=== PATIENT | male | born 1935 | race Caucasian/White ===

== ENCOUNTER 2023-10-04 10:15 | Outpatient (CLI) | payer MEDICARE ==
[2023-10-01 11:52] LABS: ALANINE AMINOTRANSFERASE 24 U/L (12-78); ALBUMIN 3.9 G/DL (3.4-5.0); ALBUMIN/GLOBULIN RATIO 1.1 (1.1-1.5); ALKALINE PHOSPHATASE 88 IU/L (46-116); ANION GAP 9 (8-16); ASPARTATE AMINO TRANSFERASE 28 U/L (10-37); BILIRUBIN,TOTAL 0.8 MG/DL (0.1-1.0); BLOOD UREA NITROGEN 18 MG/DL (7-18); CALCIUM 9.2 MG/DL (8.5-10.1); CHLORIDE 102 MMOL/L (99-107); CREATININE 1.29 MG/DL (0.60-1.10); GLUCOSE 97 MG/DL (70-104); POTASSIUM 3.9 MMOL/L (3.5-5.1); SODIUM 142 MMOL/L (135-145); TOTAL CARBON DIOXIDE 31.5 MMOL/L (24-32); TOTAL PROTEIN 7.6 G/DL (6.4-8.2); eGFR 53 ML/MIN
[~2023-10-04 10:15] MED LIST: DILT180C66 PO; ENAL-79 PO; HYDR25TA4 PO
[2023-10-04] MEDS ORDERED: iohexol 300mg/ml 100ml inj. ONE (10:24)
== END 2023-10-04 23:59 | disposition home or self-care (01) ==
LOC: RAD 10:15
PROVIDERS: ATTEND Family Medicine
DX: J98.11 Atelectasis (principal); J98.4 Other disorders of lung; I71.9 Aortic aneurysm of unspecified site, without rupture; N28.89 Other specified disorders of kidney and ureter; N28.1 Cyst of kidney, acquired; N40.0 Benign prostatic hyperplasia without lower urinary tract symptoms; R91.8 Other nonspecific abnormal finding of lung field; K57.30 Diverticulosis of large intestine without perforation or abscess without bleeding; I70.0 Atherosclerosis of aorta
CPT/HCPCS: 36415; 74178; 80053; J3490; Q9967